=== PATIENT | male | born 1990 ===

== ENCOUNTER 2025-11-25 16:55 | Emergency (ER) | payer SELFPAY ==
[2025-11-25 17:18] VITALS: BP 141/67; PULSE 93; RESP 20; TEMP 36.5; O2SAT 97; BMI 29.6
--- NOTE | 2025-11-25 17:18 | ED_ITS ---
HPI - General Adult General Chief complaint: Ear Problems Stated complaint: ? ear infection, clogged for a bit/pain Time Seen by Provider: 11/25/25 17:22 Source: patient Mode of arrival: ambulatory Limitations: no limitations History of Present Illness ED Provider: Rukhsana Barnett PA-C HPI narrative: Patient is a 35 year old male with no reported medical history presenting to the emergency department today with right ear pain. Patient states that over the last week he has had right sided ear pain that is not improving. Patient states that he was using over the counter ear drops and q tips but the pain is not getting better. Patient denies any other complaints at this time. Related Data Previous Rx's ?Medication ?Instructions ?Recorded amoxicillin 875 mg tablet 875 mg PO BID 5 days #10 tab s 11/25/25 Allergies Allergy/AdvReac Type Severity Reaction Status Date / Time No Known Allergies Allergy Verified 11/25/25 17:21 Review of Systems Constitutional: Constitutional: Reports as per HPI Eyes: Eyes: Reports as per HPI ENT: Reports as per HPI Cardiovascular: Cardiovascular: Reports as per HPI Respiratory: Respiratory: Reports as per HPI Gastrointestinal: Gastrointestinal: Reports as per HPI Genitourinary: Genitourinary: Reports as per HPI Musculoskeletal: Musculoskeletal: Reports as per HPI Integumentary/Breasts: Skin/Breast: Reports as per HPI Neurologic: Reports as per HPI Psychiatric: Psychiatric: Reports as per HPI Endocrine: Endocrine: Reports as per HPI Hematologic/Lymphatic: Hematologic/Lymphatic: Reports as per HPI Allergic/Immunologic: Allergic/Immunologic: Reports as per HPI [facility] Past Medical History Attestation statement: The following information was validated with the patient. Source: old records reviewed and nursing notes reviewed Social History Social History Advance Directives: No Advance Directives Information Provided: No Do you have a plan to hurt others: No Plan Physical Exam ED Vital Signs: Vital Signs - 24 hr 11/25/25 17:18 11/25/25 17:37 Temperature 97.7 F 97.7 F Pulse Rate 93 93 Respiratory Rate 20 20 Blood Pressure 141/67 H 141/67 H Pulse Oximetry 97 97 Oxygen Delivery Method Room Air Room Air BMI result Body Mass Index 29.6 Const General: cooperative, alert and awake Orientation/consciousness: patient oriented x3 HENMT Head: Yes normal to inspection and Yes atraumatic Ears: hearing grossly normal bilaterally, external ears normal and Abnormal EAC present erythema on the right General nose exam: Normal external nose present, no nasal discharge noted and no epistaxis Face and sinus: Yes normal facial exam, No abrasion and No laceration Mouth: Normal oral and palatal mucosa present, no drooling and no muffled voice Eyes General: appearance normal, both eyes and all related structures Periorbital: periorbital findings normal Eyelids: Yes eyelids normal Conjunctivae: conjunctivae normal Pupils: Equal, round and reactive pupils present EOM: EOMs intact bilaterally Resp Effort & Inspection: normal respiratory effort and able to speak in complete sentences Neuro General: patient oriented x3, moves all extremities and CN's II-XI intact bilaterally Cranial nerves: Yes Equal, round and reactive pupils present Cognition (Neuro): normal cognition Extrem General: Yes full ROM Psych Appearance: grossly normal Mental Status: mental status grossly normal Attitude: cooperative Medical Decision Making Medical Decision Making MDM Narrative: Patient is a 35 year old male with no reported medical history presenting to the emergency department today with right ear pain. Patient's physical exam was as noted in the physical exam portion of this note and consistent with a right otitis media. I explained my physical exam findings to the patient. I answered all questions asked by the patient. I stressed the importance of the patient taking his medication as directed (either prescribed or as the over the counter packaging recommends). I stressed the importance of the patient following up with his primary care provider. I stressed the importance of the patient returning to the emergency department immediately if his symptoms were to worsen or if he were to develop any dizziness, shortness of breath, difficulty breathing, chest pain, blurry vision, loss of vision, nausea, vomiting, abdominal pain, fever, chills, back pain, or any other complaints. Patient verbalized agreement and understanding with this treatment plan and discharge. Differential Diagnosis Differential Diagnoses: The differential diagnosis associated with the pre sentation includes Right sided otitis media Ear pain Admission/Observation Consideration of admission/observation: Escalation of care including admission/observation considered Patient would have been admitted to the hospital had his clinical presentation warranted hospital admission. Prescription Management I considered prescription management with: Antibiotic (patient prescribed an antibiotic for his right otitis media) Discharge Plan Discharge Clinical Impression: Otitis media Patient Disposition: Home, Self-Care Instructions: Ear Infection (ED) Additional Instructions: Your right ear is infected. Take your antibiotic as prescribed. STOP STICKING THINGS IN YOUR EARS - INCLUDING Q TIPS. Tienes qasim infecci?n en el o?do derecho. Slaly los antibi?ticos seg?n lo prescrito. SU DE METERTE COSAS EN LOS O?DOS, INCLUSO CUEVILLAS. IF you are prescribed home medications and/or you are taking over the counter medications at home - it is very important you continue to do so as prescribed / directed unless told otherwise. SI le recetan medicamentos y/o est? tomando medicamentos de venta mago, es muy importante que contin?e haci?ndolo seg?n lo recetado/indicado a menos que le indiquen lo contrario. Follow up with your primary care provider. Return to the emergency department immediately if your symptoms worsen or if you develop any dizziness, shortness of breath, difficulty breathing, chest pain, blurry vision, loss of vision, nausea, vomiting, abdominal pain, fever, chills, back pain, or any other complaints. Pastor?seguimiento?con peña m?dico de atenci?n primaria. Acuda inmediatamente al servicio de urgencias si jessica s?ntomas empeoran o si presenta falta de aliento, dificultad para respirar, dolor tor?cico, mareos, aturdimiento, dolor de espal da, dolor abdominal, fiebre, escalofr?os o cualquier otro s?ntoma. If you do not have a primary care provider - call any of the below numbers to establish and follow up with a primary care provider. Si no tiene un proveedor de atenci?n primaria, llame a cualquiera de los n?meros que aparecen a continuaci?n para establecer y hacer seguimiento con un proveedor de atenci?n primaria. [facility] Primary Care ([place]) [phone] [place] [address] [place], [address] [facility] Primary Care ([address]) [phone] [address] [facility], [address] [place], [address] [facility] Primary Care ([address]) [phone] [place] [address], [address] [place], [address] [facility] Primary Care ([place]) [phone] [place] [address], [address] [facility], [address] [facility] Family Medicine [phone] [address] [facility], [address] Please see the information below about our Patient Portal. If you are not yet enrolled in the [facility] Patient Portal, you will receive an enrollment email invitation following your visit to any [facility] setting. You may also self-enroll in the Patient Portal by visiting our website: [email or web address] The following information is required to access the Patient Portal: - Your [facility] Medical Record Number - Your personal home email address (must match what is in your electronic medical record, Registration staff can assist with this) - Name - Date of Capabilities of the Patient Portal: - Message some providers - View upcoming appointments - Access your health summary, medical history, and visit history - View current conditions and allergies - View procedure and lab results - View your medications, including guidelines, side effects, and precautions - Complete pre-appointment questionnaires requested by your provider - Ready summary reports of your office visits and procedures To access the Patient Portal Mobile [employer], follow these directions: - Search Realtime Technology in the [employer] Store or [employer] Store - Download the Christofer - Search for [facility] - Enter your login/password Portal del paciente Si usted no esta inscrito en el portal de pacientes de [facility], recibira qasim invitacion de inscripcion despues de peña visita al [facility] o al [facility] via correo electronico. Tambien puede inscribirse voluntariamente en el portal de pacientes visitando nuestra pagina web: [email or web address] La siguiente informacion sera requerida para acceder al portal: - Peña clifford de historia medica de [facility] - Peña direccion de correo electronico personal - Nombre - Fecha de nacimiento Capacidades: Las siguientes capacidades estan disponibles en el portal de pacientes: - Enviar mensajes a algunos doctores - Verificar proximas citas - Acceso a peña historial de ramon, registro medico e historial de visitas - Gertrude las condiciones actuales y alergias gertrude procedimientos y resultados del laboratorio - Gertrude jessica medicamentos, incluyendo las pautas - Efectos secundarios y precauciones - Completar o llenar formularios / cuestionarios de - Citas solicitadas por peña doctor - Leer los resumenes de reportes medicos de jessica visitas y procedimientos Alex acceder a la aplicacion movil: - Parisa [facility] en la [employer] Store o [employer] Store - Descargue la aplicacion - Parisa [facility] - Ingrese peña nombre de usuario / Contrasena Prescriptions: New amoxicillin 875 mg tablet 875 mg PO BID 5 Days Qty: 10 0RF Interventions: ED Discharge Assessment Last Done: 11/25/25 17:37 Discharge Date/Time: 11/25/25 17:37 Print Language: Danish
--- OUTSIDE RECORDS SUMMARY | 2025-11-25 17:33 | XMS_ITS | Clinical Summary ---
Author Organization [facility] Health Address [address] [place] [address] Care Team Providers Care Ball Racker Name Role Phone Unavailable Primary Care Provider Unavailabl e Allergies No known active allergies Medications amoxicillin (AMOXIL) 500 mg capsule Take by mouth. Active ibuprofen (ADVIL,MOTRIN) 600 mg tablet Take by mouth. Active ibuprofen (ADVIL,MOTRIN) 800 mg tablet Take 1 tablet (800 mg total) by mouth every 8 (eight) hours if needed for mild pain or moderate pain. 30 tablet 08/27/2021 Active Active Problems No known active problems Social History Tobacco Use Types Packs/Day Years Used Date Smoking Tobacco: Never Assessed Sex and Gender Information Value Date Recorded Sex Assigned at Not on file Legal Sex Male 11:39 AM PDT Gender Identity Male 08/12/2021 7:08 PM PDT Sexual Orientation Not on file Last Filed Vital Signs Vital Sign Reading Time Taken Comments Blood Pressure 116/76 08/27/2021 11:47 AM EDT Pulse 78 08/27/2021 11:47 AM EDT Temperature - - Respiratory Rate - - Oxygen Saturation - - Inhaled Oxygen Concentration - - Weight 68 kg (150 lb) 08/27/2021 11:47 AM EDT Height 165.1 cm (5' 5 ) 08/27/2021 11:47 AM EDT Body Mass Index 24.96 08/27/2021 11:47 AM EDT Plan of Treatment Health Maintenance Due Date Last Done Comments Dental Oral Exam 1990 Dental Prophylaxis 1990 Dental X-Ray: Bitewings 1990 Dental X-Ray: Full Mouth 1990 Dental X-Ray: Panoramic 08/19/2024 08/18/2021 Procedures Procedure Name Priority Date/Time Associated Diagnosis Comments PANORAMIC RADIOGRAPHIC IMAGE Routine 08/18/2021 1:00 PM EDT from Last 3 Months or Most Recently Relevant to Health Maintenance Insurance [facility] PPO
--- OUTSIDE RECORDS SUMMARY | 2025-11-25 17:33 | XMS_ITS | Encounter Summary ---
Author Organization [facility] Health Address [address] [place] [address] Care Team Providers Care Telegraph Inspector Name Role Phone Unavailable Primary Care Provider Unavailabl e Prior Encounters Date Type Department Care Team Description 08/27/2021 Travel 08/27/2021 12:30 PM EDT Office Visit [facility] [id number] Raghav Bender, Courtney B, [address] [address] Praneeth Frey DDS 08/18/2021 Travel 08/18/2021 1:00 PM EDT Office Visit [facility] [id number] Raghav Bender, Courtney B, [address] [address] DipTito dudley, REJI Last Filed Vital Signs Vital Sign Reading [...] 08/27/2021 11:47 AM EDT Plan of Treatment Not on file Procedures Procedure Name Priority Date/Time Associated Diagnosis Comments OS CONSULT Routine 08/27/2021 12:30 PM EDT ADMINISTRATION OF DEEP SEDATION/GENERAL ANESTHESIA EACH SUBSEQUENT 15 MINUTES INCREMENT, OR ANY PORTION THEREOF Routine 08/27/2021 12:30 PM EDT 31 EXTRACTION, ERUPTED TOOTH REQUIRING REMOVAL OF BONE AND/OR SECTIONING OF TOOTH Routine 08/27/2021 12:30 PM EDT 17 REMOVAL OF IMPACTED TOOTH - COMPLETELY BONY Routine 08/27/2021 12:30 PM EDT ADMINISTRATION OF DEEP SEDATION/GENERAL ANESTHESIA EACH SUBSEQUENT 15 MINUTES INCREMENT, OR ANY PORTION THEREOF Routine 08/27/2021 12:30 PM EDT 31 BONE REPLACEMENT GRAFT FOR RIDGE PRESERVATION - PER SITE Routine 08/27/2021 12:30 PM EDT ADMINISTRATION OF DEEP SEDATION/GENERAL ANESTHESIA FIRST 15 MINUTES INCREMENT, OR ANY PORTION THEREOF Routine 08/27/2021 12:30 PM EDT ADMINISTRATION OF DEEP SEDATION/GENERAL ANESTHESIA EACH SUBSEQUENT 15 MINUTES INCREMENT, OR ANY PORTION THEREOF Routine 08/27/2021 12:30 PM EDT 32 REMOVAL OF IMPACTED TOOTH - COMPLETELY BONY Routine 08/27/2021 12:30 PM EDT 31 GUIDED TISSUE REGENERATION, NATURAL TEETH - RESORBABLE BARRIER, PER SITE Routine 08/27/2021 12:30 PM EDT 16 EXTRACTION, ERUPTED TOOTH REQUIRING REMOVAL OF BONE AND/OR SECTIONING OF TOOTH Routine 08/27/2021 12:30 PM EDT 1 EXTRACTION, ERUPTED TOOTH REQUIRING REMOVAL OF BONE AND/OR SECTIONING OF TOOTH Routine 08/27/2021 12:30 PM EDT PANORAMIC RADIOGRAPHIC IMAGE Routine 08/18/2021 1:00 PM EDT BITEWING - SINGLE RADIOGRAPHIC IMAGE Routine 08/18/2021 1:00 PM EDT ADDITIONAL X-RAY Routine 08/18/2021 1:00 PM EDT SINGLE X-RAY Routine 08/18/2021 1:00 PM EDT LIMITED ORAL EVALUATION - PROBLEM FOCUSED Routine 08/18/2021 1:00 PM EDT Visit Diagnoses Not on file [place] [address] [address]
[2025-11-25 17:37] VITALS: BP 141/67; PULSE 93; RESP 20; TEMP 36.5; O2SAT 97
== END 2025-11-25 17:37 | disposition home or self-care (01) ==
PROVIDERS: Emergency Provider Emergency Medicine
DX: H66.91 Otitis media, unspecified, right ear (principal)
CPT/HCPCS: 99282; 99283